=== PATIENT | female | born 1960 | race Caucasian/White ===

== ENCOUNTER 2019-04-20 17:25 | Emergency (ER) | payer MEDICAID ==
[~2019-04-20] VITALS: Ht 160 cm; Wt 82.5 kg
[~2019-04-20 17:25] MED LIST: BENA5TAB33 PO; GLIM2TAB PO; METF100010 PO; PIOG15TA12 PO
[2019-04-20 17:36] VITALS: Ht 160 cm; Wt 82.5 kg
[2019-04-20] MEDS ORDERED: KETOROLAC 60 MG INJ IM STA (18:23)
--- NOTE | 2019-04-20 18:26 | ERD ---
ER Documentation Chief Complaint Chief Complaint RIGHT THUMB PAIN X 1 WEEK ; HX OF DM;; MED REFILL HPI Patient is a 58 years old female past medical history of diabetes presenting to the clinic for right thumb pain since Wednesday. She reports cutting her fingernails which is followed by swelling down. Patient admits to green discoloration of her thumb that has resolved. She states that the pain is worse at the distal to 10 out of 10. Patient admits to 2 weeks history of cough with green sputum production and coryza. She denies taking any OTC medication. She is requesting refills for metformin 1000 mg p.o. twice daily, that she ran out of her medication. ROS All systems reviewed and are negative except as per history of present illness. Medications Home Meds Active Scripts Ibuprofen* (Motrin*) 800 Mg Tab, 800 MG PO Q6H PRN for PAIN AND OR ELEVATED TEMP, #30 TAB Prov:KYLAH DONATO PA-C 04/20/19 Metformin* (Glucophage*) 1,000 Mg Tablet, 1000 MG PO BID for 30 Days, #60 TAB Prov:KYLAH DONATO PA-C 04/20/19 Sulfamethoxazole/Trimethoprim* (Bactrim Ds* Tablet) 1 Each Tablet, 1 TAB PO BID for 10 Days, #20 TAB Prov:KYLAH DONATO PA-C 04/20/19 Metformin Hcl* (Metformin Hcl*) 1,000 Mg Tablet, 1000 MG PO WITH BREAKFAST DINNE for 60 Days, TAB Prov:CHAR VALLADARES 09/20/15 Glimepiride* (Glimepiride*) 2 Mg Tablet, 2 MG PO WITH BREAKFAST DINNE for 60 Days, TAB Prov:CHAR VALLADARES 09/20/15 Pioglitazone Hcl* (Actos*) 15 Mg Tab, 15 MG PO DAILY for 60 Days Prov:CHAR VALLADARES 09/20/15 Benazepril Hcl* (Benazepril Hcl*) 5 Mg Tab, 5 MG PO DAILY for 60 Days Prov:CHAR VALLADARES 09/20/15 Allergies Allergies: Coded Allergies: No Known Allergy (Unverified , 09/19/15) PMhx/Soc History of Surgery: No Anesthesia Reaction: No Hx Neurological Disorder: No Hx Respiratory Disorders: No Hx Cardiac Disorders: No Hx Psychiatric Problems: No Hx Miscellaneous Medical Probl: Yes (diabetes mellitus type 2) Hx Alcohol Use: No Hx Substance Use: No Hx Tobacco Use: No Smoking Status: Never smoker Physical Exam Vitals Vital Signs Date Temp Pulse Resp B/P (MAP) Pulse Ox O2 O2 Flow FiO2 Time Delivery Rate 04/20/19 97.2 84 18 97/67 (77) 96 Room Air 20:05 04/20/19 99.0 93 19 163/82 95 17:36 (109) Physical Exam Const: No acute distress. Head: Atraumatic Resp: Clear to auscultation bilaterally Cardio: Regular rate and rhythm, no murmurs Neur: Awake and alert Psych: Normal Mood and Affect Right Thumb Exam: Negative ale test. Tenderness to the distal end. No signs of discharge, pus drainage, induration noted. Small ingrown nail noted on the lateral cuticle. Results 24 hrs Current Medications Medications Dose Sig/Constantin Start Time Status Last (Trade) Ordered Route PRN Stop Time Admin Dose Reason Admin Ceftriaxone 1 gm ONCE ONCE 04/20/19 DC 04/20/19 Sodium IM 18:30 18:42 (Rocephin) 04/20/19 18:31 Ketorolac 60 mg ONCE STAT 04/20/19 DC 04/20/19 Tromethamine IM 18:23 18:42 (Toradol) 04/20/19 18:25 Lidocaine 20 ml ONCE ONCE 04/20/19 DC (Xylocaine SC 19:00 1% (Mdv) 20 04/20/19 19:01 ml) Procedures/MDM Patient was seen and evaluated for right thumb paronychia. De quervain's tendonitis is the slightly due to negative ale test. Provider performed a digital block followed by draping of fingernail on the lateral side (Cause of paronychia). Ceftriaxone 1 g IM administered. Stable and ready for discharge. Departure Diagnosis: Primary Impression: Paronychia Condition: Stable Patient Instructions: Paronychia Referrals: [facility] Additional Instructions: Paciente aconseja volver a Departamento de urgencias inmediatamente para sntomas nuevos o que empeoran . Paciente aconseja posteriores con el PCP en 2-3 rodríguez . Paciente verbaliza la comprehensin y est de acuerdo con el tratamiento y el curso de accin. Si el paciente no tiene ninguna de atencin primaria pueden seguir con [facility] [id number] [place] [address] o [facility] + [address] [address] KYLAH DONATO PA-C April 20, 2019 18:26
[2019-04-20] MEDS ORDERED: CEFTRIAXONE 1 GM INJ IM ONE (18:30)
[2019-04-20] MEDS ORDERED: LIDOCAINE 1% (MDV) 20 ML INJ SC ONE (19:00)
[2019-04-20] MEDS ORDERED: SULF1TAB31 PO (19:33)
[2019-04-20] MEDS ORDERED: IBUP800T48 PO (19:33)
[2019-04-20] MEDS ORDERED: MTF1000T PO (19:33)
[2019-04-20 20:05] VITALS: BP 97/67; PULSE 84; RESP 18
== END 2019-04-20 20:10 | disposition home or self-care (01) ==
LOC: FTE 17:25
DX: L03.011 Cellulitis of right finger (principal); E11.9 Type 2 diabetes mellitus without complications; Z79.84 Long term (current) use of oral hypoglycemic drugs
CPT/HCPCS: J0696; J1885; Z7610; 96372

== ENCOUNTER 2019-05-11 12:57 | Emergency (ER) | payer MEDICAID ==
[~2019-05-11] VITALS: Ht 154.9 cm; Wt 83.6 kg
[~2019-05-11 12:57] MED LIST changes: +IBUP800T48 PO; +MTF1000T PO; +SULF1TAB31 PO
[2019-05-11 13:00] VITALS: Ht 154.9 cm; Wt 83.6 kg
--- NOTE | 2019-05-11 13:21 | ERD ---
ER Documentation Chief Complaint Chief Complaint RIGHT THUMB PAIN, NAIL LOOKS INFECTED. HAD I&D 3 WKS AGO HPI 5\7-year-old female presents with complaint of infection to the right thumb. S shilpa she was here 3 weeks ago and was diagnosed with paronychia and it was drained. She was put on a course of Bactrim at that time which she states she completed. Also states there is some associated pain. Denies any impaired range of motion. Denies any fevers, chills. ROS All systems reviewed and are negative except as per history of present illness. Medications Home Meds Active Scripts Bacitracin* (Bacitracin Oint (UD)*) 1 Applic Oint, 1 APPLIC TOP ONCE, #1 TUBE APPLY TO Prov:NAM PAZ 05/11/19 Hydrocodone/Acetaminophen (Reyno 5-325 Tablet) 1 Each Tablet, 1 TAB PO Q6H PRN for PAIN, #15 TAB Prov:NAM PAZ 05/11/19 Cephalexin* (Keflex*) 500 Mg Capsule, 500 MG PO QID for 7 Days, CAP Prov:NAM PAZ 05/11/19 Ibuprofen* (Motrin*) 800 Mg Tab, 800 MG PO Q6H PRN for PAIN AND OR ELEVATED TEMP, #30 TAB Prov:KYLAH DONATO PA-C 04/20/19 Metformin* (Glucophage*) 1,000 Mg Tablet, 1000 MG PO BID for 30 Days, #60 TAB Prov:KYLAH DONATO PA-C 04/20/19 Sulfamethoxazole/Trimethoprim* (Bactrim Ds* Tablet) 1 Each Tablet, 1 TAB PO BID for 10 Days, #20 TAB Prov:KYLAH DONATO PA-C 04/20/19 Metformin Hcl* (Metformin Hcl*) 1,000 Mg Tablet, 1000 MG PO WITH BREAKFAST DINNE for 60 Days, TAB Prov:CHAR VALLADARES 09/20/15 Glimepiride* (Glimepiride*) 2 Mg Tablet, 2 MG PO WITH BREAKFAST DINNE for 60 Days, TAB Prov:CHAR VALLADARES 09/20/15 Pioglitazone Hcl* (Actos*) 15 Mg Tab, 15 MG PO DAILY for 60 Days Prov:CHAR VALLADARES 09/20/15 Benazepril Hcl* (Benazepril Hcl*) 5 Mg Tab, 5 MG PO DAILY for 60 Days Prov:CHAR VALLADARES 09/20/15 Allergies Allergies: Coded Allergies: No Known Allergy (Unverified , 09/19/15) PMhx/Soc History of Surgery: No Anesthesia Reaction: No Hx Neurological Disorder: No Hx Respiratory Disorders: No Hx Cardiac Disorders: No Hx Psychiatric Problems: No Hx Miscellaneous Medical Probl: Yes (diabetes mellitus type 2) Hx Alcohol Use: No Hx Substance Use: No Hx Tobacco Use: No FmHx Family History: No diabetes, No coronary disease, No other Physical Exam Vitals Vital Signs Date Temp Pulse Resp B/P (MAP) Pulse Ox O2 O2 Flow FiO2 Time Delivery Rate 05/11/19 97.6 78 18 176/78 98 13:00 (110) Physical Exam Const: No acute distress Head: Atraumatic Eyes: Normal Conjunctiva ENT: Normal External Ears, Nose and Mouth. Neck: Full range of motion. No meningismus. Resp: Clear to auscultation bilaterally Cardio: Regular rate and rhythm, no murmurs Abd: Soft, non tender, non distended. Normal bowel sounds Skin: Skin at the lateral aspect of right thumb is black and looks infected. There are no fluctuant masses noted. Patient has full range of motion. There is no fusiform swelling. There is no pain on extension or flexion. Thumb is not in flexion. Back: No midline or flank tenderness Ext: No cyanosis, or edema Neur: Awake and alert Psych: Normal Mood and Affect Results 24 hrs Current Medications Medications Dose Sig/Constantin Start Time Status Last (Trade) Ordered Route PRN Stop Time Admin Dose Reason Admin Lidocaine 20 ml ONCE ONCE 05/11/19 DC (Xylocaine SC 13:30 1% (Mdv) 20 05/11/19 13:31 ml) Bacitracin 1 applic ONCE ONCE 05/11/19 DC 05/11/19 (Bacitracin TOP 14:30 14:33 Oint (Ud)) 05/11/19 14:31 Clindamycin 600 mg ONCE ONCE 05/11/19 Phosphate IM 15:00 (Cleocin) 05/11/19 15:01 Procedures/MDM Abscess Incision and Drainage with irrigation by me: Location: Right first digit Anesthesia: Local 1% Lidocaine Technique: Irrigated. Disrupted loculations w/ instrumentation Packing: None Complications: Neurovascularly intact post procedure 48 hour wound check. Scar minimization instructions given. MDM: There is some moderate edema of the distal phalanx therefore I&D was attempted however no pus came out. Patient was given IM clindamycin in the ER as well as Rx for Keflex. Patient also given a prescription for Reyno to help with pain control patient understood this and agreed to follow-up within 24 hours in addition patient was advised to follow-up with [facility] hand center in case of possible tenosynovitis or acute space infection. At this time of low suspicion for felon or abscess or any other drainable condition. At this time, patient is stable for discharge and outpatient management. I have instructed the patient to follow-up with all of you hand center within 1 day. I have discussed with the patient the possibility of needing to see a specialist for further workup and imaging studies if symptoms persist. I have instructed the patient to promptly return to the ER for any new or worsening symptoms including but not limited to increased pain, fever, nausea, vomiting, weakness or LOC. The patient and/or family expressed understanding of and agreement with this plan. All questions were answered. Home care instructions were provided. DISCLAIMER: Inadvertent spelling and grammatical errors are likely due to EHR/dictation software use and do not reflect on the overall quality of patient care. Also, please note that the electronic time recorded on this note does not necessarily reflect the actual time of the patient encounter. Departure Diagnosis: Primary Impression: Paronychia Condition: Jaya PAZNAM May 11, 2019 13:21
[2019-05-11] MEDS ORDERED: LIDOCAINE 1% (MDV) 20 ML INJ SC ONE (13:30)
[2019-05-11] MEDS ORDERED: BACITRACIN 0.9 GM OINT TOP ONE (14:30)
[2019-05-11] MEDS ORDERED: CEPH-443 PO (14:52)
[2019-05-11] MEDS ORDERED: HYDR-4011 PO (14:54)
[2019-05-11] MEDS ORDERED: BACITUD TOP (14:54)
[2019-05-11] MEDS ORDERED: CLINDAMYCIN 600 MG INJ IM ONE (15:00)
[2019-05-11] MEDS ORDERED: CLINDAMYCIN 300 MG INJ IM SCH (15:25)
[2019-05-11 15:56] VITALS: BP 152/69; PULSE 71; RESP 18
== END 2019-05-11 15:57 | disposition home or self-care (01) ==
LOC: FTE 12:57
DX: L03.011 Cellulitis of right finger (principal); E11.9 Type 2 diabetes mellitus without complications; Z79.84 Long term (current) use of oral hypoglycemic drugs
CPT/HCPCS: 26010; 96372; Z7502; Z7610